=== PATIENT | male | born 1955 | race Hispanic/Latino ===

== ENCOUNTER 2021-10-21 13:48 | Inpatient (IN) | payer MEDICARE ==
[~2021-10-21] VITALS: Ht 170.2 cm; Wt 70.3 kg
[2021-10-21] MEDS ORDERED: SODIUM CHLORIDE 0.9% 1000ML 1,000 ML IV ONE (14:15)
[2021-10-21] MEDS ORDERED: ONDANSETRON HCL INJ 2MG/ML 2ML 2 MG/ML VIAL IV PRN ×2 (14:15→16:30)
[2021-10-21 14:47] LABS: BASOPHILS % 0.2 % (0.0-1.0); HEMATOCRIT 34.6 % (38.2-49.6); HEMOGLOBIN 12.6 g/dL (14.0-18.0); LYMPHOCYTES # (AUTO) 0.4 (1.0-3.2); LYMPHOCYTES % 7.8 % (18.0-39.1); MEAN CORPUSCULAR HEMOGLOBIN 31.7 pg (28-32); MEAN CORPUSCULAR HGB CONC 36.4 g/dL (31-35); MEAN CORPUSCULAR VOLUME 86.9 fL (81-99); MONOCYTES # (AUTO) 0.3 (0.2-0.8); MONOCYTES % 6.5 % (4.4-11.3); NEUTROPHILS # (AUTO) 4.3 (2.1-6.9); NEUTROPHILS % 84.9 % (38.7-80.0); PLATELET COUNT 110 x10e3/uL (140-360); RED BLOOD COUNT 3.98 x10e6/uL (4.3-5.7); RED CELL DISTRIBUTION WIDTH 11.7 % (11.7-14.4)
[2021-10-21 14:51] LABS: CLARITY,URINE SL CLOUDY (CLEAR); COLOR,URINE AMBER (YELLOW); KETONES,URINE 1+ (NEGATIVE); LEUKOCYTE ESTERASE ,URINE NEGATIVE (NEGATIVE); NITRITE,URINE NEGATIVE (NEGATIVE); PROTEIN,URINE DIPSTICK 2+ (NEGATIVE); URINE UROBILINOGEN 4 mg/dL (0.2 - 1)
[2021-10-21 15:03] LABS: BACTERIA,URINE MODERATE /HPF
[2021-10-21 15:04] LABS: ALBUMIN 3.3 g/dL (3.5-5.0); ALBUMIN/GLOBULIN RATIO 1.1 (0.8-2.0); ANION GAP 16.4 mmol/L (8-16); CALCIUM 7.9 mg/dL (8.4-10.2); CREATININE, SERUM 0.84 mg/dL (0.72-1.25); POTASSIUM 4.4 mmol/L (3.5-5.1)
[2021-10-21 15:29] LABS: BASOPHILS % 0.4 % (0.0-1.0); HEMATOCRIT 31.1 % (38.2-49.6); LYMPHOCYTES # (AUTO) 0.5 (1.0-3.2); MEAN CORPUSCULAR HEMOGLOBIN 31.2 pg (28-32); MEAN CORPUSCULAR HGB CONC 35.4 g/dL (31-35); MEAN CORPUSCULAR VOLUME 88.1 fL (81-99); MONOCYTES # (AUTO) 0.4 (0.2-0.8); MONOCYTES % 7.5 % (4.4-11.3); NEUTROPHILS # (AUTO) 3.8 (2.1-6.9); NEUTROPHILS % 80.7 % (38.7-80.0); PLATELET COUNT 95 x10e3/uL (140-360); RED BLOOD COUNT 3.53 x10e6/uL (4.3-5.7); RED CELL DISTRIBUTION WIDTH 11.8 % (11.7-14.4)
[2021-10-21 15:46] LABS: ALBUMIN 2.9 g/dL (3.5-5.0); CALCIUM 7.3 mg/dL (8.4-10.2); CREATININE, SERUM 0.8 mg/dL (0.72-1.25)
[2021-10-21] MEDS: SODIUM CHLORIDE 0.9% 1000ML 1,000 ML IV SCH ×2 (16:56→22:37)
[2021-10-21] MEDS ORDERED: SODIUM CHLORIDE 3% 100 ML IV ONE (17:00)
[2021-10-22] VITALS (12 sets, daily range): BP systolic 91–137; BP diastolic 43–87
[2021-10-22 00:32] LABS: ANION GAP 16.7 mmol/L (8-16); CALCIUM 7.8 mg/dL (8.4-10.2); CREATININE, SERUM 0.83 mg/dL (0.72-1.25); POTASSIUM 3.7 mmol/L (3.5-5.1)
[2021-10-22] MEDS ORDERED: DOCUSATE SODIUM 100 MG CAP PO PRN (06:00)
[2021-10-22] MEDS ORDERED: ACETAMINOPHEN 325 MG TAB PO PRN (06:00)
[2021-10-22] MEDS ORDERED: GUAIFENESIN/DEXTROMETHORPHAN LIQD 5 ML UDC NG PRN (06:00)
[2021-10-22 07:00] LABS: ANION GAP 17.2 mmol/L (8-16); CALCIUM 7.8 mg/dL (8.4-10.2); CREATININE, SERUM 0.84 mg/dL (0.72-1.25); POTASSIUM 4.2 mmol/L (3.5-5.1)
[2021-10-22] MEDS ORDERED: HYDROCHLOROTHIA25 MG PO (08:33)
[2021-10-22] MEDS ORDERED: BENICAR20 MG PO (08:34)
[2021-10-22] MEDS ORDERED: PRAVASTATIN SOD40 MG PO (08:34)
[2021-10-22] MEDS ORDERED: PRILOSEC OTC20 MG PO (08:35)
[2021-10-22] MEDS: ZINC SULFATE 50 MG CAP PO SCH (09:42)
[2021-10-22] MEDS: CHOLECALCIFEROL 1,000 UNIT TAB PO SCH (09:42)
[2021-10-22] MEDS: BENZONATATE 100 MG CAP PO SCH ×3 (09:42→20:17)
[2021-10-22] MEDS: ASCORBIC ACID 500 MG TAB PO SCH ×2 (09:42→16:48)
[2021-10-22 14:39] LABS: ANION GAP 12.9 mmol/L (8-16); CREATININE, SERUM 0.81 mg/dL (0.72-1.25); POTASSIUM 3.9 mmol/L (3.5-5.1)
[2021-10-23] VITALS (8 sets, daily range): BP systolic 87–154; BP diastolic 50–87
[2021-10-23 04:46] LABS: ANION GAP 15.6 mmol/L (8-16); CALCIUM 8.1 mg/dL (8.4-10.2); CREATININE, SERUM 0.81 mg/dL (0.72-1.25); POTASSIUM 3.6 mmol/L (3.5-5.1)
[2021-10-23] MEDS: SODIUM CHLORIDE 0.9% 1000ML 1,000 ML IV SCH (08:08)
[2021-10-23] MEDS: ZINC SULFATE 50 MG CAP PO SCH (08:08)
[2021-10-23] MEDS: BENZONATATE 100 MG CAP PO SCH ×2 (08:08→15:08)
[2021-10-23] MEDS: ASCORBIC ACID 500 MG TAB PO SCH (08:08)
[2021-10-23] MEDS: CHOLECALCIFEROL 1,000 UNIT TAB PO SCH (08:08)
[2021-10-24] MEDS ORDERED: AZITHROMYCIN 250 MG TAB PO SCH (07:30)
== END 2021-10-23 18:55 | disposition home or self-care (01) | DRG 871 ==
LOC: ER 13:51 → ERHOLD 16:48 → IMCU 22:20
PROVIDERS: ADMIT Internal Medicine; ATTEND Internal Medicine
DX: A41.9 Sepsis, unspecified organism (principal); U07.1 COVID-19; J18.9 Pneumonia, unspecified organism; G93.41 Metabolic encephalopathy; E87.1 Hypo-osmolality and hyponatremia; N39.0 Urinary tract infection, site not specified
CPT/HCPCS: 36415; 70450; 71045; 80048; 80053; 81001; 83690; 84484; 85025; 93005; 94799; 97139; 99284; J0456; J2405; J7030; J7050; U0002